=== PATIENT | female | born 1990 | race Caucasian/White ===

== ENCOUNTER 2018-06-02 20:34 | Emergency (ER) | payer OTHER ==
--- NOTE | 2018-06-02 22:14 | XRAY Report ---
Reason: Pain Procedure Date: 06/02/2018 Accession Number: [id number] / [id number] Procedure: XR - Ankle 3 View RT CPT Code: FULL RESULT: EXAM: RIGHT ANKLE RADIOGRAPHY EXAM DATE: 06/02/2018 09:48 PM. CLINICAL HISTORY: Pain. COMPARISON: None. TECHNIQUE: 3 views. FINDINGS: Bones: Normal. No fractures or bone lesions. Joints: Normal. No effusion. No subluxations. The ankle mortise is normally aligned. Soft Tissues: Periarticular soft tissue swelling. IMPRESSION: No evidence of right ankle fracture. RADIA
--- NOTE | 2018-06-02 22:21 | ED Physician Documentation ---
History of Present Illness - Stated complaint Stated Complaint: ANKLE SWELLING - Chief complaint Chief Complaint: Ext Problem - History obtained from History obtained from: Patient - History of Present Illness Timing: How many weeks ago (2) Pain level max: 3 Pain level now: 3 Severity Comments: mild Quality: Dull Radiates to: None Improved by: None Worsened by: None Associated symptoms: None Review of Systems Ten Systems: 10 systems reviewed and negative Constitutional: reports: Reviewed and negative Eyes: reports: Reviewed and negative Ears: reports: Reviewed and negative Nose: reports: Reviewed and negative Throat: reports: Reviewed and negative Cardiac: reports: Reviewed and negative Respiratory: reports: Reviewed and negative GI: reports: Reviewed and negative : reports: Reviewed and negative Skin: reports: Reviewed and negative Musculoskeletal: reports: Reviewed and negative Neurologic: reports: Reviewed and negative Psychiatric: reports: Reviewed and negative Endocrine: reports: Reviewed and negative Immunocompromised: reports: Reviewed and negative PD PAST MEDICAL HISTORY - Past Medical History Past Medical History: Yes Cardiovascular: None Respiratory: None Endocrine/Autoimmune: None GI: None 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 Living Arrangement: reports: At home - Social History Does the pt smoke?: No Smoking Status: Never smoker Does the pt drink ETOH?: Yes Does the pt have substance abuse?: No - Family History Family history: reports: Other (Reviewed and not pertinent) - Immunizations Immunizations are current?: Yes PD ED PE NORMAL - Vitals Vital signs reviewed: Yes - General General: Alert and oriented X 3, No acute distress - HEENT HEENT: PERRL - Neck Neck: Supple, no meningeal sign - Cardiac Cardiac: RRR, No murmur - Respiratory Respiratory: Clear bilaterally - Abdomen Abdomen: Normal bowel sounds, Soft, Non tender, Non distended - Derm Derm: Warm and dry - Extremities Extremities: No deformity, Other (Mild bilateral lower extremity edema.) - Neuro Neuro: Alert and oriented X 3 - Psych Psych: Normal mood, Normal affect Results - Vitals Vitals: Vital Signs - 24 hr 06/02/18 06/02/18 20:38 22:26 Temperature 36.6 C Heart Rate 87 75 Respiratory 18 16 Rate Blood Pressure 146/74 H 134/72 H O2 Saturation 100 100 Oxygen O2 Source Room air - Rads (name of study) Rt ankle xray Radiology: Final report received (Normal) PD MEDICAL DECISION MAKING - ED course Complexity details: reviewed results, re-evaluated patient, considered differential, d/w patient, d/w family ED course: 27-year-old female with bilateral lower extremity edema and right ankle swelling. Bedside ultrasound of the right lower extremity was unremarkable for DVT. Right ankle x-ray unremarkable. Patient recommended conservative management with leg elevation and compression stockings. Departure - Departure Disposition: 01 Home, Self Care Clinical Impression: Peripheral edema Condition: Good Instructions: ED Edema Legs Bilateral Follow-Up: CARMELA BOBO PA-C [Primary Care Provider] - Comments: Where high compression compression stockings to both legs. Keep legs elevated above heart as often as possible. Wear comfortable shoes. Follow-up with PCP. Return with worsening symptoms. Discharge Date/Time: 06/02/18 22:30
[2018-06-02 22:30] VITALS: BP 134/72
== END 2018-06-02 22:30 | disposition home or self-care (01) ==
LOC: ED 20:34
DX: R60.9 Edema, unspecified (principal); M25.471 Effusion, right ankle
CPT/HCPCS: 99283

== ENCOUNTER 2020-01-07 13:55 | Outpatient (CLI) | payer OTHER ==
[2020-01-07 14:51] VITALS: BP 145/88
--- NOTE | 2020-01-07 14:51 | SLEEP CARE CONSULTATION ---
Information from patient questionnaire entered by Lee Douglas. I have reviewed and concur with the information entered by Lee Douglas. This document represents the service I personally performed and the decisions made by me, Karina Douglass ARNP. History of Present Illness Service Date and Time: 01/07/2020 1355 Reason for Visit: New patient, Previously diagnosed sleep apnea Chief Complaint: reports: Unrefreshed sleep, Snoring, Excessive daytime sleepiness, Observed pauses in breathing, Fatigue, Frequent awakenings at night. denies: Insomnia Date of Onset: since I was little Usual bedtime: 9PM-12AM Time it takes to fall asleep: 5-20 minutes Snores at night: Yes Observed to quit breathing while asleep: Yes Sleeps alone due to snoring: No Number of times waking at night: 1-3 times Reasons for waking at night: reports: Bathroom, Other (dogs; scared I am going to be late). denies: Choking, Snoring, Gasping for air Toss, Turn, or Twitch while sleeping: Yes Recalls having dreams: Yes Usually gets out of bed at: 6-9 AM Feels refreshed in the morning: No Morning headache: No Sleepy or fatigued during the day: Yes Ever fallen asleep while driving: No Takes day naps: Yes (only if anxiety lets her; once in a "blue aguirre") Dreams during day naps: Yes Prior sleep studies: Yes Year and Where: 2018 at [facility] Type of Sleep Study: Polysomnography Additional HPI information: I had the pleasure of seeing TIAN COPPOLARE today regarding the possibility of her having a sleep disorder. Her current complaints are unrefreshed sleep, excessive daytime sleepiness, fatigue, frequent nightly awakening and observed pauses in her breathing. She was diagnosed in 2018 at [facility] but due to unable to follow up had to return the CPAP machine. She has had surgeries where her tonsil, adenoids and some nasal cartilage was removed. She comes in today to re-establish at the encouragement of her who accompanies her today. - Parasomnia Symptoms Ever been unable to move upon waking from sleep: No Walks in sleep: No Talks in sleep: Yes Ever acted out dreams in sleep: No Ever felt weak in the knees when startled or emotional: No Bothered by creepy, crawly, restless sensations in legs: Yes (sometimes) Problems with memory or concentration: Yes (daily) Past Medical History Past Medical History: reports: Insulin resistance (PCOS), Anxiety, Depression, Other (ESPINOZA). 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 Patient is and lives in [place]. Have you smoked in the past 12 months: Yes (vapour for last month in evenings) Cigarettes per day (20/pack): 1 (nights, sporadic) Alcohol use: Yes Alcohol amount and frequency: not in last 2-3 months; occasional Caffeine use: Yes Caffeine amount and frequency: 24-32 ounce coffee, 3 days a week Family History Family history of sleep disordered breathing: Yes Family Hx Sleep Apnea: Father: Snoring, Grandparent: Snoring Allergies and Home Medications Drug allergies reviewed: Yes (NKDA) Home medication list reviewed: Yes Allergy and home medication list: Bupropion 300 mg Sertaline 25 mg control patches trazadone 10 mg, prn (doesn't take it) Review of Systems Cardiovascular: reports: leg or foot swelling (occasional ankle swelling). denies: high blood pressure, palpitations, chest pain, irregular heart rate or pulse Respiratory: denies: shortness of breath, chronic cough Gastrointestinal: denies: heartburn, difficulty swallowing Urinary: denies: impotence Neurological: reports: headaches (sinus headaches). denies: seizure, head trauma, speech dysfunction, gait or balance problems Psychiatric: reports: anxiety, depression. denies: Attention Deficit Hyperactivity, mood disorder, claustrophobia Ear/Nose/Throat: reports: nasal congestion, sinus problems, tonsillectomy, wisdom teeth removed (has one left). denies: nose bleeds, dry mouth/throat, hoarseness, injury to nose Endocrine: denies: thyroid disease Musculoskeletal: denies: joint pain, back pain, muscle pain or cramping, mobility problems Immunologic: denies: allergies to food or environment Physical Exam Blood Pressure: 145/88 Cuff size: long Heart Rate: 79 O2 Saturation: 96 Height: 6 ft Weight: 346 lb Body Mass Index: 46.9 BMI Classification: Morbidly Obese HEENT: No craniofacial malformation Nostrils: patent to airflow Turbinates: normal Septum: deviated right Mouth and throat: normal Soft palate: normal Hard palate: normal Uvula: normal Uvula visualization: 50% Mallampati Class II Tongue: enlarged in size with teeth hammer on lateral edges Tonsils: absent bilaterally Chin and jaw: normal size and position Neck: normal w/o lymphadenopathy or thyromegaly Heart: regular rate and rhythm Lungs: clear bilaterally Impression and Plan 1. Obstructive Sleep Apnea-Hypopnea Syndrome, as previously diagnosed. And also suggested by a history of loud and irregular snoring, observed cessation of breath while asleep, unrefreshed sleep, cognitive impairment, and excessive daytime sleepiness. She does have a history of tonsillectomy, adenoidectomy and nasal reconstruction prior to ESPINOZA diagnosis. She had a previous study in 2018 that we will try to obtain. If we are unable to obtain than we will go forward with a sleep study to confirm diagnosis and severity prior to setting her back up on a CPAP machine. Patient agreed to plan. * Obtain previous sleep study * Schedule polysomnography +- manual CPAP titration study if unable to obtain previous study for confirmation of ESPINOZA diagnosis as well as severity. * Avoid long distance driving or driving when feeling sleepy. * Avoid alcohol, sedative and muscle relaxant around bedtime. * Attempt to lose weight. * Review instructions provided by trained office staff on how to prepare for the sleep study. * Will start CPAP therapy if able to obtain verification of diagnosis * Return for follow-up after sleep study completed, if needed. Visit Type: In Office Time Spent with Patient (minutes): 34 Provider Statement: I spent 100% of the Face to Face Visit with the patient with greater than 50% spent counseling the patient and coordination of care.
== END 2020-01-07 13:56 | disposition home or self-care (01) ==
LOC: SC 13:55
PROVIDERS: ATTEND Nurse Practitioner Family
DX: G47.33 Obstructive sleep apnea (adult) (pediatric) (principal); E66.01 Morbid (severe) obesity due to excess calories; Z68.42 Body mass index [BMI] 45.0-49.9, adult; F17.210 Nicotine dependence, cigarettes, uncomplicated
CPT/HCPCS: 99204; 99212

== ENCOUNTER 2020-04-07 19:31 | Outpatient (CLI) | payer OTHER | END 2020-04-07 19:32 | disposition home or self-care (01) | LOC: SC 19:31 | PROVIDERS: ATTEND Nurse Practitioner Family | DX: G47.33 Obstructive sleep apnea (adult) (pediatric) (principal) | CPT/HCPCS: 95810 ==

== ENCOUNTER 2020-04-18 11:08 | Outpatient (CLI) | payer OTHER ==
--- NOTE | 2020-04-18 11:35 | SLEEP CARE CONSULTATION ---
Information from patient questionnaire entered by Bouchra Iniguez. I have reviewed and concur with the information entered by Bouchra Iniguez. This document represents the service I personally performed and the decisions made by me, Fer Mitchell MD, [facility]. History of Present Illness Service Date and Time: 04/18/2020 1108 Initial Norman Sleepiness Scale score: 6 (in 2020) Current Norman Sleepiness Scale score: 6 Additional HPI information: HPI: Ms. Adkins returned for follow up of the sleep study she had on 04/07/2020. The polysomnography showed that the patient had reduced sleep efficiency due to sleep onset insomnia (the patient was awake almost throughout the first half of the night). The sleep architecture was abnormal for sleep fragmentation and reduced amount of time spent in REM sleep. Respiratory monitoring showed moderate obstructive sleep apnea-hypopnea (AHI = 22.6) associated with frequent arousals, oxyhemoglobin desaturation and mild hypoxia (henri oxygen saturation of 83%). The patient only slept supine during this study (supine AHI = 22.8; non-supine = 0.00). Snore was moderate to loud in intensity. There was no significant periodic leg movement of sleep. Cardiac rhythm was normal sinus rhythm without significant arrhythmia. No abnormal behavior (parasomnia) observed during the night. The patient was informed of these findings. I explained to her the pathophysiology behind obstructive sleep apnea. We then spent quite a bit of time discussing different treatment options. For mild obstructive sleep apnea, surgery and oral appliance are alternatives to nasal CPAP therapy but in moderate or severe cases, nasal CPAP is the most effective and reliable treatment. After some discussion, she opted to go with the nasal CPAP therapy. I explained to her how CPAP machine works and what to expect when using the machine. She actually has used a CPAP in the past and quit because he durable medical supplier left town. She wore a full face mask. Sleep Study - Results Type of Sleep Study: Polysomnography Prior sleep studies: Yes Year and Where: [facility] Allergies and Home Medications Drug allergies reviewed: Yes Home medication list reviewed: Yes Review of Systems Review of systems same as previous: Yes Physical Exam Vital signs obtained and entered by: To minimize the risk of COVID-19 exposure, detailed exam was not performed. Height: 6 ft Weight: 346 lb Body Mass Index: 46.9 BMI Classification: Morbidly Obese Impression and Plan IMPRESSION: 1. Obstructive Sleep Apnea-Hypopnea Syndrome, moderate, associated with mild hypoxemia and sleep fragmentation. Most likely, this is the cause of the patients symptoms of unrefreshed sleep, and excessive daytime sleepiness. As mentioned above, the patient will be started on autoCPAP set at a generic setting of 5 - 15 cmH2O. Depending on her response and compliance she may be brought back for an overnight CPAP titration study. PLAN: 1. Prescription made for an autoCPAP with heated humidifier and related supplies. 2. Attempt to lose weight. 3. Be careful when driving until her sleepiness resolves completely on nasal CPAP therapy. 4. Return in one month for follow up. I will assess her response and compliance at that time. Visit Type: In Office Time Spent with Patient (minutes): 15 Provider Statement: I spent 100% of the Face to Face Visit with the patient with greater than 50% spent counseling the patient and coordination of care.
== END 2020-04-18 11:09 | disposition home or self-care (01) ==
LOC: SC 11:08
PROVIDERS: ATTEND Internal Medicine Pulmonary Disease
DX: G47.33 Obstructive sleep apnea (adult) (pediatric) (principal); E66.01 Morbid (severe) obesity due to excess calories; Z68.42 Body mass index [BMI] 45.0-49.9, adult
CPT/HCPCS: 99212; 99213